=== PATIENT | male | born 1965 | race Asian ===

== ENCOUNTER 2016-12-12 13:37 | Emergency (ER) | payer MEDICAID, SELFPAY ==
[~2016-12-12] VITALS: Ht 165.1 cm; Wt 70.4 kg
[~2016-12-12 13:37] MED LIST: BUSP30TA2; IBUP-2070; NOCURR
[2016-12-12] MEDS ORDERED: IBUP200C5 PO (13:43)
[2016-12-12 14:49] VITALS: BP 114/71
[2016-12-12] MEDS ORDERED: IBUPROFEN 800 MG TABLET PO ONE (15:00)
== END 2016-12-12 18:01 | disposition home or self-care (01) ==
LOC: EMS 13:40
DX: M19.012 Primary osteoarthritis, left shoulder (principal); M75.32 Calcific tendinitis of left shoulder; S43.002A Unspecified subluxation of left shoulder joint, initial encounter; F17.210 Nicotine dependence, cigarettes, uncomplicated; X50.0XXA Overexertion from strenuous movement or load, initial encounter; Y93.89 Activity, other specified; Y92.89 Other specified places as the place of occurrence of the external cause; Y99.8 Other external cause status
CPT/HCPCS: 99284

== ENCOUNTER 2019-04-04 09:11 | Emergency (ER) | payer MEDICAID ==
[~2019-04-04] VITALS: Ht 170.2 cm; Wt 75.0 kg
[~2019-04-04 09:11] MED LIST changes: -BUSP30TA2; -IBUP-2070; +IBUP200C5 PO; -NOCURR
[2019-04-04] MEDS ORDERED: IBUP-2070 PO (09:32)
[2019-04-04 10:09] LABS: BASOPHILS % (AUTO) 0.5 % (0.0-2.0); EOSINOPHILS % (AUTO) 1.3 % (1.0-6.0); HEMATOCRIT 37.2 % (41-53); HEMOGLOBIN 12.6 g/dL (13.5-17.5); LYMPHOCYTES % (AUTO) 39.9 % (22.0-44.0); MEAN CORPUSCULAR HGB CONC 33.8 G/dL (31.0-37.0); MEAN CORPUSCULAR VOLUME 95 fL (80-100); MONOCYTES # (AUTO) 0.5 K/uL (0.1-1.0); MONOCYTES % (AUTO) 9.7 % (2.0-9.0); NEUTROPHILS # (AUTO) 2.4 K/uL (1.8-7.7); NEUTROPHILS % (AUTO) 48.6 % (40.0-70.0); PLATELET COUNT (AUTO) 253 K/uL (150-450); RED BLOOD CELL COUNT(AUTO) 3.93 MIL/uL (4.50-5.90); RED CELL DISTRIBUTION WIDTH 13.2 % (11.5-14.5)
[2019-04-04 10:18] LABS: ANION GAP 8 mmol/L (8-16); CALCIUM, TOTAL 8.3 mg/dL (8.8-10.5); CARBON DIOXIDE 27 mmol/L (22-29); CHLORIDE 102 mmol/L (98-107); CREATININE 0.98 mg/dL (0.60-1.30); GLOMERULAR FILTR. RATE CALC > 60 mL/min (>60); GLUCOSE,RANDOM 106 mg/dL (70-110); POTASSIUM 3.5 mmol/L (3.5-5.1); SODIUM SERUM 137 mmol/L (136-145); UREA NITROGEN, BLOOD 11 mg/dL (7-18)
[2019-04-04 10:26] LABS: ALANINE AMINOTRANSFERASE 26 U/L (12-78); ALBUMIN 3.1 g/dL (3.4-5.0); ALKALINE PHOSPHATASE 46 U/L (46-116); ASPARTATE AMINOTRANSFERASE 37 U/L (15-37); BILIRUBIN,TOTAL 0.3 mg/dL (0.1-1.0); TOTAL PROTEIN, SERUM 6.5 g/dL (6.4-8.2)
[2019-04-04 11:01] LABS: AMPHET/METH SCREEN,URINE POSITIVE (NEGATIVE); BARBITURATE SCREEN, URINE NEGATIVE (NEGATIVE); BENZODIAZEPINES SCREEN,URINE NEGATIVE (NEGATIVE); CANNABINOID SCREEN,URINE NEGATIVE (NEGATIVE); COCAINE SCREEN,URINE NEGATIVE (NEGATIVE); METHADONE SCREEN, URINE NEGATIVE (NEGATIVE); OPIATE SCREEN,URINE NEGATIVE (NEGATIVE); PHENCYCLIDINE SCREEN,URINE NEGATIVE (NEGATIVE)
[2019-04-04 11:40] VITALS: BP 120/91
== END 2019-04-04 11:56 | disposition home or self-care (01) ==
LOC: EMS 09:12
DX: F29 Unspecified psychosis not due to a substance or known physiological condition (principal); F15.10 Other stimulant abuse, uncomplicated; F17.210 Nicotine dependence, cigarettes, uncomplicated
CPT/HCPCS: 36415; 80053; 80307; 85025; 99283; 99406; G0480

== ENCOUNTER 2019-04-29 09:43 | Inpatient (IN) | payer MEDICAID ==
[~2019-04-29] VITALS: Ht 165.1 cm; Wt 73.5 kg
[~2019-04-29 09:43] MED LIST changes: +IBUP-2070 PO; -IBUP200C5 PO
[2019-04-29] MEDS ORDERED: OLANZapine 5 MG RAPDIS TABLET PO PRN (11:15)
[2019-04-29] MEDS ORDERED: MAGNESIUM HYDROXIDE SUSPENSION 30 ML UDCUP PO PRN (11:15)
[2019-04-29] MEDS ORDERED: ACETAMINOPHEN 325 MG TABLET PO PRN (11:15)
[2019-04-29] MEDS ORDERED: ZOLPIDEM TARTRATE 10 MG TABLET PO PRN (11:15)
[2019-04-29] MEDS ORDERED: LOPERAMIDE HCL 2 MG CAPSULE PO PRN (11:15)
[2019-04-29] MEDS ORDERED: GuaiFENesin/D-METHORPHAN [SUGAR-FREE] 200-20MG/10 ML SYRUP UDCUP PO PRN (11:15)
[2019-04-29] MEDS ORDERED: LORazepam 2 MG TABLET PO PRN (11:15)
[2019-04-29] MEDS ORDERED: HydrOXYzine PAMOATE 50 MG CAPSULE PO PRN (11:15)
[2019-04-29] MEDS ORDERED: TUBERCULIN, PURIFIED PROTEIN DERIVATIVE 5 TU/0.1 ML SYRINGE ID ONE (11:15)
[2019-04-29] MEDS ORDERED: PROMETHAZINE HCL 25 MG TABLET PO PRN (11:15)
[2019-04-29] MEDS ORDERED: MAG HYDROX/AL HYDROX/SIMETH ES 30 ML SUSPENSION UDCUP PO PRN (11:15)
[2019-04-29] MEDS ORDERED: IBUPROFEN 600 MG TABLET PO PRN (15:30)
[2019-04-29 15:31] VITALS: BP 132/91
[2019-04-29] MEDS: THIAMINE HCL 100 MG TABLET PO SCH (17:16)
[2019-04-29 19:50] VITALS: BP 114/64
[2019-04-29] MEDS ORDERED: OLANZapine 5 MG RAPDIS TABLET PO SCH (21:00)
[2019-04-30 05:33] VITALS: BP 108/67
[2019-04-30 08:49] VITALS: BP 130/83
[2019-04-30 09:07] LABS: CHOL/HDL RATIO 4.5 (4.2-7.3); FREE T4 (FREE THYROXINE) 0.21 ng/dL (0.76-1.46)
[2019-04-30 09:08] LABS: HEMOGLOBIN A1C 6.4 % (4.5-6.2)
[2019-04-30 09:28] LABS: THYROID STIMULATING HORMONE 126.67 uIU/mL (0.36-3.74)
[2019-04-30] MEDS: MULTIVITAMINS WITH MINERALS, THERAPEUTIC TABLET PO SCH (09:32)
[2019-04-30] MEDS: NALTREXONE HCL 50 MG TABLET PO SCH (09:32)
[2019-04-30] MEDS: FOLIC ACID 1 MG TABLET PO SCH (09:32)
[2019-04-30] MEDS: THIAMINE HCL 100 MG TABLET PO SCH ×2 (09:32→17:02)
[2019-04-30 16:22] VITALS: BP 104/65
[2019-04-30] MEDS: OLANZapine 10 MG RAPDIS TABLET PO SCH (21:03)
[2019-05-01 06:28] VITALS: BP 103/65
[2019-05-01 08:31] VITALS: BP 131/80
[2019-05-01] MEDS: NALTREXONE HCL 50 MG TABLET PO SCH (08:35)
[2019-05-01] MEDS: FOLIC ACID 1 MG TABLET PO SCH (08:35)
[2019-05-01] MEDS: MULTIVITAMINS WITH MINERALS, THERAPEUTIC TABLET PO SCH (08:35)
[2019-05-01] MEDS: THIAMINE HCL 100 MG TABLET PO SCH ×2 (08:35→17:15)
[2019-05-01] MEDS ORDERED: OLAN10TA22 PO (15:51)
[2019-05-01] MEDS ORDERED: NALT50TA PO (15:51)
[2019-05-01 16:25] VITALS: BP 113/70
[2019-05-01] MEDS: OLANZapine 10 MG RAPDIS TABLET PO SCH (20:19)
[2019-05-02 00:21] VITALS: BP 127/63
[2019-05-02] MEDS ORDERED: LEVOTHYROXINE SODIUM 50 MCG TABLET PO SCH (06:30)
[2019-05-02 07:40] LABS: BASOPHILS % (AUTO) 0.7 % (0.0-2.0); EOSINOPHILS % (AUTO) 1.8 % (1.0-6.0); HEMATOCRIT 37.6 % (41-53); HEMOGLOBIN 12.4 g/dL (13.5-17.5); LYMPHOCYTES # (AUTO) 2.4 K/uL (1.0-4.8); LYMPHOCYTES % (AUTO) 37.3 % (22.0-44.0); MEAN CORPUSCULAR HEMOGLOBIN 31.5 pg (26.0-34.0); MEAN CORPUSCULAR VOLUME 96 fL (80-100); MONOCYTES # (AUTO) 0.6 K/uL (0.1-1.0); MONOCYTES % (AUTO) 9.5 % (2.0-9.0); NEUTROPHILS # (AUTO) 3.3 K/uL (1.8-7.7); NEUTROPHILS % (AUTO) 50.7 % (40.0-70.0); PLATELET COUNT (AUTO) 300 K/uL (150-450); RED BLOOD CELL COUNT(AUTO) 3.94 MIL/uL (4.50-5.90)
[2019-05-02 07:59] LABS: ALANINE AMINOTRANSFERASE 28 U/L (12-78); ALBUMIN 3.2 g/dL (3.4-5.0); ALKALINE PHOSPHATASE 57 U/L (46-116); ANION GAP 6 mmol/L (8-16); ASPARTATE AMINOTRANSFERASE 18 U/L (15-37); BILIRUBIN,TOTAL 0.2 mg/dL (0.1-1.0); CALCIUM, TOTAL 8.7 mg/dL (8.8-10.5); CARBON DIOXIDE 28 mmol/L (22-29); CHLORIDE 104 mmol/L (98-107); GLOMERULAR FILTR. RATE CALC > 60 mL/min (>60); GLUCOSE,RANDOM 89 mg/dL (70-110); POTASSIUM 4.3 mmol/L (3.5-5.1); SODIUM SERUM 138 mmol/L (136-145); TOTAL PROTEIN, SERUM 6.3 g/dL (6.4-8.2); UREA NITROGEN, BLOOD 17 mg/dL (7-18)
[2019-05-02] MEDS: NALTREXONE HCL 50 MG TABLET PO SCH (08:15)
[2019-05-02] MEDS: MULTIVITAMINS WITH MINERALS, THERAPEUTIC TABLET PO SCH (08:15)
[2019-05-02] MEDS: THIAMINE HCL 100 MG TABLET PO SCH (08:15)
[2019-05-02] MEDS: FOLIC ACID 1 MG TABLET PO SCH (08:15)
[2019-05-02 08:20] VITALS: BP 105/66
[2019-05-02] MEDS ORDERED: LEVO50 PO (08:40)
== END 2019-05-02 13:00 | disposition home or self-care (01) | DRG 750 ==
LOC: EMS 09:45 → B3A 12:12 → B2S 16:27
PROVIDERS: ADMIT Psychiatry & Neurology Psychiatry; ATTEND Psychiatry & Neurology Psychiatry
DX: F20.9 Schizophrenia, unspecified (principal); R45.850 Homicidal ideations; F15.90 Other stimulant use, unspecified, uncomplicated; F17.210 Nicotine dependence, cigarettes, uncomplicated; G89.29 Other chronic pain; F41.9 Anxiety disorder, unspecified; G47.00 Insomnia, unspecified; K21.9 Gastro-esophageal reflux disease without esophagitis; K59.00 Constipation, unspecified; Z87.442 Personal history of urinary calculi
CPT/HCPCS: 83036; 84439; 84443; 86592; 87081

== ENCOUNTER 2021-02-08 09:55 | Emergency (ER) | payer MEDICAID ==
[~2021-02-08] VITALS: Ht 165.1 cm; Wt 76.4 kg
[~2021-02-08 09:55] MED LIST changes: -IBUP-2070 PO; +LEVO50 PO; +NALT50TA PO; +OLAN10TA22 PO
[2021-02-08] MEDS ORDERED: MAG HYDROX/AL HYDROX/SIMETH 30 ML SUSP UDCUP PO ONE (10:30)
[2021-02-08] MEDS ORDERED: MECLIZINE HCL 25 MG TABLET PO ONE (10:30)
[2021-02-08] MEDS ORDERED: FAMOTIDINE 10 MG/ML 2 ML VIAL IVP ONE (10:30)
[2021-02-08] MEDS ORDERED: SODIUM CHLORIDE 0.9% 1,000 ML IV ONE (10:30)
[2021-02-08] MEDS ORDERED: ONDANSETRON HCL 4 MG/2 ML VIAL IVP ONE (10:30)
[2021-02-08 10:51] LABS: EOSINOPHILS % (AUTO) 0.9 % (1.0-6.0); HEMATOCRIT 38.9 % (41-53); HEMOGLOBIN 12.7 g/dL (13.5-17.5); LYMPHOCYTES # (AUTO) 2.3 K/uL (1.0-4.8); LYMPHOCYTES % (AUTO) 31.4 % (22.0-44.0); MEAN CORPUSCULAR HEMOGLOBIN 31.1 pg (26.0-34.0); MEAN CORPUSCULAR HGB CONC 32.7 G/dL (31.0-37.0); MEAN CORPUSCULAR VOLUME 95 fL (80-100); MONOCYTES # (AUTO) 0.4 K/uL (0.1-1.0); MONOCYTES % (AUTO) 5.8 % (2.0-9.0); NEUTROPHILS # (AUTO) 4.5 K/uL (1.8-7.7); NEUTROPHILS % (AUTO) 60.9 % (40.0-70.0); PLATELET COUNT (AUTO) 253 K/uL (150-450); RED BLOOD CELL COUNT(AUTO) 4.09 MIL/uL (4.50-5.90); RED CELL DISTRIBUTION WIDTH 14.5 % (11.5-14.5)
[2021-02-08 11:01] LABS: ANION GAP 9 mmol/L (8-16); CALCIUM, TOTAL 9.3 mg/dL (8.8-10.5); CARBON DIOXIDE 29 mmol/L (22-29); CHLORIDE 102 mmol/L (98-107); CREATININE 1.38 mg/dL (0.60-1.30); GLOMERULAR FILTR. RATE CALC 53 mL/min (>60); GLUCOSE,RANDOM 106 mg/dL (70-110); POTASSIUM 4.2 mmol/L (3.5-5.1); SODIUM SERUM 140 mmol/L (136-145); UREA NITROGEN, BLOOD 16 mg/dL (7-18)
[2021-02-08 11:12] LABS: B-TYPE NATRIURETIC PEPTIDE 9 pg/mL (0-100)
[2021-02-08 11:25] LABS: ALANINE AMINOTRANSFERASE 25 U/L (12-78); ALBUMIN 4.2 g/dL (3.4-5.0); ALKALINE PHOSPHATASE 74 U/L (46-116); ASPARTATE AMINOTRANSFERASE 30 U/L (15-37); BILIRUBIN,TOTAL 0.4 mg/dL (0.1-1.0); CREATINE KINASE, TOTAL ONLY 496 U/L (39-308); TOTAL PROTEIN, SERUM 8.1 g/dL (6.4-8.2)
[2021-02-08 12:28] VITALS: BP 110/79
== END 2021-02-08 12:43 | disposition home or self-care (01) ==
LOC: EMS 10:02
DX: R42 Dizziness and giddiness (principal); F20.9 Schizophrenia, unspecified; F17.210 Nicotine dependence, cigarettes, uncomplicated
CPT/HCPCS: 36415; 71045; 80053; 82550; 83880; 84484; 85025; 93005; 96361; 96374; 96375; 99285; G0480; J2405; J3490; J7030

== ENCOUNTER 2022-02-25 03:44 | Emergency (ER) | payer MEDICAID ==
[~2022-02-25] VITALS: Ht 165.1 cm; Wt 77.0 kg
[2022-02-25 04:36] LABS: BASOPHILS % (AUTO) 0.8 % (0.0-2.0); EOSINOPHILS % (AUTO) 1.6 % (1.0-6.0); HEMATOCRIT 37.2 % (41-53); HEMOGLOBIN 12.3 g/dL (13.5-17.5); LYMPHOCYTES % (AUTO) 44.3 % (22.0-44.0); MEAN CORPUSCULAR HGB CONC 33.2 G/dL (31.0-37.0); MEAN CORPUSCULAR VOLUME 97 fL (80-100); MONOCYTES # (AUTO) 0.4 K/uL (0.1-1.0); MONOCYTES % (AUTO) 5.7 % (2.0-9.0); NEUTROPHILS # (AUTO) 3.2 K/uL (1.8-7.7); NEUTROPHILS % (AUTO) 47.6 % (40.0-70.0); PLATELET COUNT (AUTO) 227 K/uL (150-450); RED BLOOD CELL COUNT(AUTO) 3.86 MIL/uL (4.50-5.90); RED CELL DISTRIBUTION WIDTH 14.7 % (11.5-14.5)
[2022-02-25 04:43] LABS: ANION GAP 6 mmol/L (8-16); CALCIUM, TOTAL 9.4 mg/dL (8.8-10.5); CARBON DIOXIDE 28 mmol/L (22-29); CHLORIDE 99 mmol/L (98-107); CREATININE 1.52 mg/dL (0.60-1.30); GLUCOSE,RANDOM 100 mg/dL (70-110); POTASSIUM 4.2 mmol/L (3.5-5.1); SODIUM SERUM 133 mmol/L (136-145); UREA NITROGEN, BLOOD 17 mg/dL (7-18)
[2022-02-25 04:47] LABS: GLOMERULAR FILTR. RATE CALC 47 mL/min (>60)
[2022-02-25 04:52] LABS: ALANINE AMINOTRANSFERASE 31 U/L (12-78); ALBUMIN 4.5 g/dL (3.4-5.0); ALKALINE PHOSPHATASE 47 U/L (46-116); ASPARTATE AMINOTRANSFERASE 43 U/L (15-37); BILIRUBIN,TOTAL 0.5 mg/dL (0.1-1.0); TOTAL PROTEIN, SERUM 8.7 g/dL (6.4-8.2)
[2022-02-25 05:02] LABS: COVID AG,FIA SOURCE NASOPHARYNGEAL
[2022-02-25 05:10] LABS: AMPHET/METH SCREEN,URINE POSITIVE (NEGATIVE); BARBITURATE SCREEN, URINE NEGATIVE (NEGATIVE); BENZODIAZEPINES SCREEN,URINE NEGATIVE (NEGATIVE); CANNABINOID SCREEN,URINE NEGATIVE (NEGATIVE); COCAINE SCREEN,URINE NEGATIVE (NEGATIVE); METHADONE SCREEN, URINE NEGATIVE (NEGATIVE); OPIATE SCREEN,URINE NEGATIVE (NEGATIVE)
[2022-02-25 05:12] LABS: PHENCYCLIDINE SCREEN,URINE NEGATIVE (NEGATIVE)
[2022-02-25] MEDS ORDERED: HALOPERIDOL 5 MG TABLET PO ONE (05:15)
[2022-02-25 06:23] VITALS: BP 135/82
== END 2022-02-25 06:30 | disposition home or self-care (01) ==
LOC: EMS 03:45
DX: F20.9 Schizophrenia, unspecified (principal); G89.29 Other chronic pain; M54.9 Dorsalgia, unspecified; E03.9 Hypothyroidism, unspecified; F17.210 Nicotine dependence, cigarettes, uncomplicated; Z20.822 Contact with and (suspected) exposure to COVID-19
CPT/HCPCS: 99284; 87426; 80053; 85025; 36415; 80307; G0480

== ENCOUNTER 2022-03-05 20:04 | Emergency (ER) | payer MEDICAID ==
[~2022-03-05] VITALS: Ht 165.1 cm; Wt 90.9 kg
[~2022-03-05 20:04] MED LIST changes: +ATOR40TA28 PO; +NAPR-1025 PO; +OLAN10TA74 PO
[2022-03-05] MEDS ORDERED: ATOR10TA PO (20:11)
[2022-03-05 21:03] LABS: BASOPHILS % (AUTO) 1.2 % (0.0-2.0); EOSINOPHILS % (AUTO) 1.4 % (1.0-6.0); HEMATOCRIT 35.3 % (41-53); HEMOGLOBIN 11.8 g/dL (13.5-17.5); LYMPHOCYTES # (AUTO) 2.4 K/uL (1.0-4.8); LYMPHOCYTES % (AUTO) 39.9 % (22.0-44.0); MEAN CORPUSCULAR HEMOGLOBIN 32.7 pg (26.0-34.0); MEAN CORPUSCULAR HGB CONC 33.5 G/dL (31.0-37.0); MEAN CORPUSCULAR VOLUME 97 fL (80-100); MONOCYTES # (AUTO) 0.4 K/uL (0.1-1.0); MONOCYTES % (AUTO) 6.3 % (2.0-9.0); NEUTROPHILS # (AUTO) 3.1 K/uL (1.8-7.7); NEUTROPHILS % (AUTO) 51.2 % (40.0-70.0); PLATELET COUNT (AUTO) 220 K/uL (150-450); RED BLOOD CELL COUNT(AUTO) 3.63 MIL/uL (4.50-5.90); RED CELL DISTRIBUTION WIDTH 14.5 % (11.5-14.5)
[2022-03-05 21:11] LABS: COVID AG,FIA SOURCE NASOPHARYNGEAL
[2022-03-05 21:15] LABS: CALCIUM, TOTAL 9.9 mg/dL (8.8-10.5); POTASSIUM 4.6 mmol/L (3.5-5.1)
[2022-03-05 21:29] LABS: ALBUMIN 4.4 g/dL (3.4-5.0); BILIRUBIN,TOTAL 0.3 mg/dL (0.1-1.0); THYROID STIMULATING HORMONE 134.04 uIU/mL (0.36-3.74); TOTAL PROTEIN, SERUM 8.5 g/dL (6.4-8.2)
[2022-03-05] MEDS ORDERED: LEVOTHYROXINE SODIUM 100 MCG TABLET PO ONE (23:30)
[2022-03-05 23:54] VITALS: BP 126/80
[2022-03-05] MEDS ORDERED: LEVO50 PO (23:55)
== END 2022-03-06 00:26 | disposition home or self-care (01) ==
LOC: EMS 20:07
DX: E03.9 Hypothyroidism, unspecified (principal); F15.10 Other stimulant abuse, uncomplicated; F20.9 Schizophrenia, unspecified; Z91.14 Patient's other noncompliance with medication regimen; G89.29 Other chronic pain; M54.9 Dorsalgia, unspecified; F17.210 Nicotine dependence, cigarettes, uncomplicated; Z20.822 Contact with and (suspected) exposure to COVID-19
CPT/HCPCS: 99285; 87426; 80053; 84443; 85025; 36415; G0480

== ENCOUNTER 2022-12-03 06:15 | Inpatient (IN) | payer MEDICAID ==
[~2022-12-03] VITALS: Ht 165.1 cm; Wt 71.8 kg
[~2022-12-03 06:15] MED LIST changes: +ATOR10TA PO; -NALT50TA PO
[2022-12-03] MEDS ORDERED: KETOROLAC TROMETHAMINE 30 MG/ML VIAL IM ONE (06:30)
[2022-12-03 06:47] LABS: BASOPHILS % (AUTO) 0.5 % (0.0-2.0); EOSINOPHILS % (AUTO) 2.8 % (1.0-6.0); HEMATOCRIT 37.2 % (41-53); HEMOGLOBIN 12.1 g/dL (13.5-17.5); LYMPHOCYTES % (AUTO) 28.3 % (22.0-44.0); MEAN CORPUSCULAR HEMOGLOBIN 29.9 pg (26.0-34.0); MEAN CORPUSCULAR HGB CONC 32.4 G/dL (31.0-37.0); MEAN CORPUSCULAR VOLUME 92 fL (80-100); MONOCYTES # (AUTO) 0.6 K/uL (0.1-1.0); MONOCYTES % (AUTO) 8.9 % (2.0-9.0); NEUTROPHILS # (AUTO) 4.1 K/uL (1.8-7.7); NEUTROPHILS % (AUTO) 59.5 % (40.0-70.0); PLATELET COUNT (AUTO) 240 K/uL (150-450); RED BLOOD CELL COUNT(AUTO) 4.04 MIL/uL (4.50-5.90); RED CELL DISTRIBUTION WIDTH 13.7 % (11.5-14.5)
[2022-12-03 06:48] LABS: COVID AG,FIA SOURCE NASOPHARYNGEAL
[2022-12-03 06:53] LABS: ANION GAP 10 mmol/L (8-16); CALCIUM, TOTAL 8.9 mg/dL (8.8-10.5); CARBON DIOXIDE 24 mmol/L (22-29); CHLORIDE 102 mmol/L (98-107); CREATININE 0.88 mg/dL (0.60-1.30); GLOMERULAR FILTR. RATE CALC > 60 mL/min (>60); GLUCOSE,RANDOM 98 mg/dL (70-110); SODIUM SERUM 136 mmol/L (136-145); UREA NITROGEN, BLOOD 10 mg/dL (7-18)
[2022-12-03 07:05] LABS: ALCOHOL, BLOOD (SERUM) < 3 mg/dL (0-10)
[2022-12-03 07:07] LABS: ALANINE AMINOTRANSFERASE 21 U/L (12-78); ALBUMIN 3.6 g/dL (3.4-5.0); ALKALINE PHOSPHATASE 78 U/L (46-116); ASPARTATE AMINOTRANSFERASE 19 U/L (15-37); BILIRUBIN,TOTAL 0.5 mg/dL (0.1-1.0); THYROID STIMULATING HORMONE 13.26 uIU/mL (0.36-3.74); TOTAL PROTEIN, SERUM 7.2 g/dL (6.4-8.2)
[2022-12-03 07:21] LABS: SARS-COV2 (COVID) ANTIGEN,FIA Negative (Negative)
[2022-12-03 08:32] LABS: APPEARANCE,URINE CLEAR (CLEAR); BILIRUBIN,URINE NEGATIVE (NEGATIVE); COLOR,URINE LIGHT YELLOW (YELLOW); GLUCOSE, URINE (UA) NEGATIVE (NEGATIVE); KETONES,URINE NEGATIVE (NEGATIVE); LEUKOCYTE ESTERASE ,URINE TRACE (NEGATIVE); NITRATE,URINE NEGATIVE (NEGATIVE); OCCULT BLOOD,URINE NEGATIVE (NEGATIVE); PH,URINE 5.5 (5.0-8.0); PH,URINE DRUG SCREEN 5.5 (5.0-8.0); PROTEIN,URINE NEGATIVE (NEGATIVE); SPECIFIC GRAVITIY, URINE 1.016 (1.003-1.030); UROBILINOGEN,URINE <=1.0 mg/dL (<=1.0)
[2022-12-03 08:36] LABS: GLUCOMETER DEV NAME(LOC) ER.6; GLUCOSE,POINT OF CARE 92 MG/DL (70-110)
[2022-12-03 08:39] LABS: ALCOHOL, URINE DRUG SCREEN NEGATIVE (NEGATIVE); AMPHET/METH SCREEN,URINE NEGATIVE (NEGATIVE); BARBITURATE SCREEN, URINE NEGATIVE (NEGATIVE); BENZODIAZEPINES SCREEN,URINE NEGATIVE (NEGATIVE); CANNABINOID SCREEN,URINE NEGATIVE (NEGATIVE); COCAINE SCREEN,URINE NEGATIVE (NEGATIVE); METHADONE SCREEN, URINE NEGATIVE (NEGATIVE); OPIATE SCREEN,URINE NEGATIVE (NEGATIVE); PHENCYCLIDINE SCREEN,URINE NEGATIVE (NEGATIVE)
[2022-12-03] MEDS ORDERED: LEVOTHYROXINE SODIUM 125 MCG TABLET PO ONE (09:00)
[2022-12-03 09:09] LABS: BACTERIA,URINE None Seen /HPF (None Seen); RBC,URINE None Seen /HPF (0-2); WBC,URINE 0-2 /HPF (0-5)
[2022-12-03 09:10] LABS: SQUAMOUS EPITHELIAL CELL,UR Few /LPF (None Seen)
[2022-12-03] MEDS ORDERED: OLANZapine 5 MG RAPDIS TABLET PO PRN (09:30)
[2022-12-05] MEDS: LORazepam 2 MG TABLET PO PRN ×2 (09:56→21:17)
[2022-12-05 16:12] VITALS: BP 113/67; PULSE 94; RESP 18; TEMP 97.2
[2022-12-05] MEDS ORDERED: PROMETHAZINE HCL 25 MG TABLET PO PRN (20:15)
[2022-12-05] MEDS ORDERED: HydrOXYzine PAMOATE 50 MG CAPSULE PO PRN (20:15)
[2022-12-05] MEDS ORDERED: MAG HYDROX/AL HYDROX/SIMETH ES 30 ML SUSPENSION UDCUP PO PRN (20:15)
[2022-12-05] MEDS ORDERED: ACETAMINOPHEN 325 MG TABLET PO PRN (20:15)
[2022-12-05] MEDS ORDERED: LOPERAMIDE HCL 2 MG CAPSULE PO PRN (20:15)
[2022-12-05] MEDS ORDERED: TUBERCULIN, PURIFIED PROTEIN DERIVATIVE 5 TU/0.1 ML SYRINGE ID ONE (20:15)
[2022-12-05] MEDS ORDERED: GuaiFENesin/D-METHORPHAN [SUGAR-FREE] 200-20MG/10 ML SYRUP UDCUP PO PRN (20:15)
[2022-12-05] MEDS ORDERED: OLANZapine 5 MG RAPDIS TABLET PO ONE (20:15)
[2022-12-05] MEDS: ZOLPIDEM TARTRATE 10 MG TABLET PO PRN (21:16)
[2022-12-05] MEDS: MELATONIN 5 MG TABLET PO SCH (21:16)
[2022-12-05 22:11] VITALS: BP 110/67; PULSE 85; RESP 18; TEMP 97.2
[2022-12-06] MEDS: LEVOTHYROXINE SODIUM 50 MCG TABLET PO SCH (06:55)
[2022-12-06 07:07] LABS: HEMOGLOBIN A1C 5.8 % (3.8-5.6)
[2022-12-06 07:30] LABS: CHOL/HDL RATIO 3.9 (4.2-7.3); FREE T4 (FREE THYROXINE) 0.86 ng/dL (0.76-1.46); THYROID STIMULATING HORMONE 18.1 uIU/mL (0.36-3.74)
[2022-12-06] MEDS ORDERED: BuPROPion HCL XL 150 MG ER TABLET PO SCH (09:00)
[2022-12-06] MEDS: NALTREXONE HCL 50 MG TABLET PO SCH (09:39)
[2022-12-06] MEDS: MULTIVITAMINS WITH MINERALS, THERAPEUTIC TABLET PO SCH (09:39)
[2022-12-06] MEDS: FOLIC ACID 1 MG TABLET PO SCH (09:39)
[2022-12-06] MEDS: THIAMINE 100 MG TABLET PO SCH ×2 (09:39→17:25)
[2022-12-06] MEDS: OMEGA-3/DHA/EPA/FISH OIL 1,000 MG CAPSULE PO SCH (09:39)
[2022-12-06 10:19] VITALS: BP 111/71; PULSE 74; RESP 16; TEMP 97.2
[2022-12-06 20:00] VITALS: BP 116/67; PULSE 76; RESP 18; TEMP 97.8
[2022-12-06] MEDS ORDERED: OLANZapine 5 MG RAPDIS TABLET PO SCH (21:00)
[2022-12-06] MEDS: MELATONIN 5 MG TABLET PO SCH (21:04)
[2022-12-06] MEDS ORDERED: LURASIDONE HCL 40 MG TABLET PO PRN (21:30)
[2022-12-07] MEDS: LEVOTHYROXINE SODIUM 50 MCG TABLET PO SCH (06:47)
[2022-12-07] MEDS ORDERED: LURASIDONE HCL 40 MG TABLET PO SCH (07:30)
[2022-12-07] MEDS: FOLIC ACID 1 MG TABLET PO SCH (09:22)
[2022-12-07] MEDS: BuPROPion HCL XL 150 MG ER TABLET PO SCH (09:22)
[2022-12-07] MEDS: THIAMINE 100 MG TABLET PO SCH ×2 (09:22→17:27)
[2022-12-07] MEDS: MULTIVITAMINS WITH MINERALS, THERAPEUTIC TABLET PO SCH (09:22)
[2022-12-07] MEDS: NALTREXONE HCL 50 MG TABLET PO SCH (09:22)
[2022-12-07] MEDS: OMEGA-3/DHA/EPA/FISH OIL 1,000 MG CAPSULE PO SCH (09:22)
[2022-12-07 10:48] VITALS: BP 91/57; PULSE 74; RESP 18; TEMP 98
[2022-12-07 20:45] VITALS: BP 100/60; PULSE 68; RESP 18; TEMP 98
[2022-12-07] MEDS: MELATONIN 5 MG TABLET PO SCH (21:01)
[2022-12-08] MEDS: LEVOTHYROXINE SODIUM 50 MCG TABLET PO SCH (06:55)
[2022-12-08] MEDS ORDERED: LURASIDONE HCL 60 MG TABLET PO SCH (07:30)
[2022-12-08] MEDS: THIAMINE 100 MG TABLET PO SCH ×2 (08:26→16:05)
[2022-12-08] MEDS: NALTREXONE HCL 50 MG TABLET PO SCH (08:26)
[2022-12-08] MEDS: BuPROPion HCL XL 150 MG ER TABLET PO SCH (08:26)
[2022-12-08] MEDS: FOLIC ACID 1 MG TABLET PO SCH (08:26)
[2022-12-08] MEDS: MULTIVITAMINS WITH MINERALS, THERAPEUTIC TABLET PO SCH (08:27)
[2022-12-08] MEDS: OMEGA-3/DHA/EPA/FISH OIL 1,000 MG CAPSULE PO SCH (08:27)
[2022-12-08 12:13] VITALS: BP 101/19; PULSE 71; RESP 17; TEMP 97.3
[2022-12-08] MEDS: MELATONIN 5 MG TABLET PO SCH (20:20)
[2022-12-08 21:17] VITALS: BP 112/72; PULSE 70; RESP 18; TEMP 97.6
[2022-12-08] MEDS: ZOLPIDEM TARTRATE 10 MG TABLET PO PRN (22:02)
[2022-12-09] MEDS: LURASIDONE HCL 80 MG TABLET PO SCH (06:53)
[2022-12-09] MEDS: LEVOTHYROXINE SODIUM 50 MCG TABLET PO SCH (06:53)
[2022-12-09] MEDS: OMEGA-3/DHA/EPA/FISH OIL 1,000 MG CAPSULE PO SCH (08:32)
[2022-12-09] MEDS: NALTREXONE HCL 50 MG TABLET PO SCH (08:33)
[2022-12-09] MEDS: BuPROPion HCL XL 150 MG ER TABLET PO SCH (08:33)
[2022-12-09] MEDS: MULTIVITAMINS WITH MINERALS, THERAPEUTIC TABLET PO SCH (08:33)
[2022-12-09] MEDS: THIAMINE 100 MG TABLET PO SCH ×2 (08:33→16:18)
[2022-12-09] MEDS: FOLIC ACID 1 MG TABLET PO SCH (08:33)
[2022-12-09] MEDS: MAGNESIUM HYDROXIDE SUSPENSION 30 ML UDCUP PO PRN (08:34)
[2022-12-09 09:27] VITALS: BP 120/88; PULSE 81; RESP 16; TEMP 97.7
[2022-12-09] MEDS: LORazepam 2 MG TABLET PO PRN (10:16)
[2022-12-09] MEDS: MELATONIN 5 MG TABLET PO SCH (21:06)
[2022-12-09 22:00] VITALS: BP 114/88; PULSE 66; RESP 18; TEMP 97.4
[2022-12-10] MEDS: LEVOTHYROXINE SODIUM 50 MCG TABLET PO SCH (06:47)
[2022-12-10] MEDS: LURASIDONE HCL 80 MG TABLET PO SCH (06:47)
[2022-12-10] MEDS: FOLIC ACID 1 MG TABLET PO SCH (08:21)
[2022-12-10] MEDS: THIAMINE 100 MG TABLET PO SCH ×2 (08:21→15:53)
[2022-12-10] MEDS: OMEGA-3/DHA/EPA/FISH OIL 1,000 MG CAPSULE PO SCH (08:21)
[2022-12-10] MEDS: NALTREXONE HCL 50 MG TABLET PO SCH (08:22)
[2022-12-10] MEDS: MULTIVITAMINS WITH MINERALS, THERAPEUTIC TABLET PO SCH (08:22)
[2022-12-10] MEDS: BuPROPion HCL XL 150 MG ER TABLET PO SCH (08:22)
[2022-12-10 10:47] VITALS: BP 103/72; PULSE 74; RESP 18; TEMP 98.3
[2022-12-10] MEDS: LORazepam 2 MG TABLET PO PRN (15:56)
[2022-12-10] MEDS: MELATONIN 5 MG TABLET PO SCH (20:01)
[2022-12-10 21:12] VITALS: BP 104/69; PULSE 75; RESP 18; TEMP 97.8
[2022-12-10] MEDS: ZOLPIDEM TARTRATE 10 MG TABLET PO PRN (22:02)
[2022-12-11] MEDS: LEVOTHYROXINE SODIUM 50 MCG TABLET PO SCH (06:52)
[2022-12-11] MEDS: LURASIDONE HCL 80 MG TABLET PO SCH (06:52)
[2022-12-11] MEDS: OMEGA-3/DHA/EPA/FISH OIL 1,000 MG CAPSULE PO SCH (09:01)
[2022-12-11] MEDS: BuPROPion HCL XL 150 MG ER TABLET PO SCH (09:01)
[2022-12-11] MEDS: FOLIC ACID 1 MG TABLET PO SCH (09:01)
[2022-12-11] MEDS: THIAMINE 100 MG TABLET PO SCH ×2 (09:01→16:32)
[2022-12-11] MEDS: MULTIVITAMINS WITH MINERALS, THERAPEUTIC TABLET PO SCH (09:01)
[2022-12-11] MEDS: NALTREXONE HCL 50 MG TABLET PO SCH (09:01)
[2022-12-11 09:44] VITALS: BP 112/70; PULSE 79; RESP 18; TEMP 97.6
[2022-12-11] MEDS: MAGNESIUM HYDROXIDE SUSPENSION 30 ML UDCUP PO PRN (17:38)
[2022-12-11 20:39] VITALS: BP 136/78; PULSE 68; RESP 19; TEMP 98
[2022-12-11] MEDS: MELATONIN 5 MG TABLET PO SCH (21:41)
[2022-12-11] MEDS: LORazepam 2 MG TABLET PO PRN (21:41)
[2022-12-11] MEDS: ZOLPIDEM TARTRATE 10 MG TABLET PO PRN (21:42)
[2022-12-12] MEDS: LURASIDONE HCL 80 MG TABLET PO SCH (06:43)
[2022-12-12] MEDS: LEVOTHYROXINE SODIUM 50 MCG TABLET PO SCH (06:43)
[2022-12-12 08:00] VITALS: BP 117/79; PULSE 89; RESP 18; TEMP 98
[2022-12-12] MEDS: NALTREXONE HCL 50 MG TABLET PO SCH (09:49)
[2022-12-12] MEDS: MULTIVITAMINS WITH MINERALS, THERAPEUTIC TABLET PO SCH (09:49)
[2022-12-12] MEDS: THIAMINE 100 MG TABLET PO SCH ×2 (09:49→18:00)
[2022-12-12] MEDS: FOLIC ACID 1 MG TABLET PO SCH (09:49)
[2022-12-12] MEDS: OMEGA-3/DHA/EPA/FISH OIL 1,000 MG CAPSULE PO SCH (09:49)
[2022-12-12] MEDS: BuPROPion HCL XL 150 MG ER TABLET PO SCH (09:50)
[2022-12-12] MEDS: MELATONIN 5 MG TABLET PO SCH (21:08)
[2022-12-12] MEDS: LORazepam 2 MG TABLET PO PRN (21:39)
[2022-12-12] MEDS: ZOLPIDEM TARTRATE 10 MG TABLET PO PRN (21:39)
[2022-12-12 22:18] VITALS: BP 132/65; PULSE 68; RESP 18; TEMP 97.6
[2022-12-13] MEDS: LEVOTHYROXINE SODIUM 50 MCG TABLET PO SCH (06:51)
[2022-12-13] MEDS ORDERED: LURASIDONE HCL 40 MG TABLET PO SCH (07:30)
[2022-12-13 08:00] VITALS: BP 111/73; PULSE 76; RESP 18; TEMP 98.1
[2022-12-13] MEDS: OMEGA-3/DHA/EPA/FISH OIL 1,000 MG CAPSULE PO SCH (09:22)
[2022-12-13] MEDS: MULTIVITAMINS WITH MINERALS, THERAPEUTIC TABLET PO SCH (09:22)
[2022-12-13] MEDS: FOLIC ACID 1 MG TABLET PO SCH (09:23)
[2022-12-13] MEDS: NALTREXONE HCL 50 MG TABLET PO SCH (09:23)
[2022-12-13] MEDS: BuPROPion HCL XL 150 MG ER TABLET PO SCH (09:23)
[2022-12-13] MEDS: THIAMINE 100 MG TABLET PO SCH ×2 (09:23→16:32)
[2022-12-13 20:50] VITALS: BP 110/73; PULSE 96; RESP 18; TEMP 98.3
[2022-12-13] MEDS: ZOLPIDEM TARTRATE 10 MG TABLET PO PRN (21:10)
[2022-12-13] MEDS: LORazepam 2 MG TABLET PO PRN (21:10)
[2022-12-13] MEDS: MELATONIN 5 MG TABLET PO SCH (21:10)
[2022-12-14] MEDS: LURASIDONE HCL 80 MG TABLET PO SCH (07:01)
[2022-12-14] MEDS: LEVOTHYROXINE SODIUM 50 MCG TABLET PO SCH (07:01)
[2022-12-14] MEDS: NALTREXONE HCL 50 MG TABLET PO SCH (08:40)
[2022-12-14] MEDS: MULTIVITAMINS WITH MINERALS, THERAPEUTIC TABLET PO SCH (08:40)
[2022-12-14] MEDS: THIAMINE 100 MG TABLET PO SCH ×2 (08:40→16:38)
[2022-12-14] MEDS: BuPROPion HCL XL 150 MG ER TABLET PO SCH (08:40)
[2022-12-14] MEDS: OMEGA-3/DHA/EPA/FISH OIL 1,000 MG CAPSULE PO SCH (08:40)
[2022-12-14] MEDS: FOLIC ACID 1 MG TABLET PO SCH (08:40)
[2022-12-14] MEDS: MELATONIN 5 MG TABLET PO SCH (20:38)
[2022-12-14] MEDS: LORazepam 2 MG TABLET PO PRN (20:59)
[2022-12-14 22:43] VITALS: BP 129/74; PULSE 76; RESP 18; TEMP 98.1
[2022-12-14] MEDS: ZOLPIDEM TARTRATE 10 MG TABLET PO PRN (23:58)
[2022-12-15] MEDS: LURASIDONE HCL 80 MG TABLET PO SCH (06:53)
[2022-12-15] MEDS: LEVOTHYROXINE SODIUM 50 MCG TABLET PO SCH (06:53)
[2022-12-15 08:00] VITALS: BP 110/67; PULSE 70; RESP 18; TEMP 96
[2022-12-15] MEDS: OMEGA-3/DHA/EPA/FISH OIL 1,000 MG CAPSULE PO SCH (09:13)
[2022-12-15] MEDS: MULTIVITAMINS WITH MINERALS, THERAPEUTIC TABLET PO SCH (09:13)
[2022-12-15] MEDS: FOLIC ACID 1 MG TABLET PO SCH (09:14)
[2022-12-15] MEDS: BuPROPion HCL XL 150 MG ER TABLET PO SCH (09:14)
[2022-12-15] MEDS: THIAMINE 100 MG TABLET PO SCH ×2 (09:14→16:56)
[2022-12-15] MEDS: NALTREXONE HCL 50 MG TABLET PO SCH (09:17)
[2022-12-15] MEDS: MELATONIN 5 MG TABLET PO SCH (20:16)
[2022-12-15 20:26] VITALS: BP 119/82; PULSE 73; RESP 18; TEMP 98.4
[2022-12-15] MEDS ORDERED: QUEtiapine FUMARATE 100 MG TABLET PO PRN (20:45)
[2022-12-15] MEDS: ZOLPIDEM TARTRATE 10 MG TABLET PO PRN (20:45)
[2022-12-15] MEDS ORDERED: QUEtiapine FUMARATE 200 MG TABLET PO ONE (20:45)
[2022-12-15] MEDS ORDERED: QUEtiapine FUMARATE 200 MG TABLET PO SCH (21:00)
[2022-12-15] MEDS: LORazepam 2 MG TABLET PO PRN (21:11)
[2022-12-16] MEDS: LEVOTHYROXINE SODIUM 50 MCG TABLET PO SCH (06:46)
[2022-12-16] MEDS ORDERED: LURASIDONE HCL 60 MG TABLET PO SCH (07:30)
[2022-12-16 08:00] VITALS: BP 115/72; PULSE 72; RESP 18; TEMP 97.8
[2022-12-16] MEDS: QUEtiapine FUMARATE 25 MG TABLET PO SCH ×3 (09:21→17:26)
[2022-12-16] MEDS: OMEGA-3/DHA/EPA/FISH OIL 1,000 MG CAPSULE PO SCH (09:22)
[2022-12-16] MEDS: BuPROPion HCL XL 150 MG ER TABLET PO SCH (09:22)
[2022-12-16] MEDS: NALTREXONE HCL 50 MG TABLET PO SCH (09:23)
[2022-12-16] MEDS: MULTIVITAMINS WITH MINERALS, THERAPEUTIC TABLET PO SCH (09:23)
[2022-12-16] MEDS: MAGNESIUM HYDROXIDE SUSPENSION 30 ML UDCUP PO PRN (10:18)
[2022-12-16] MEDS: MELATONIN 5 MG TABLET PO SCH (20:32)
[2022-12-16] MEDS: QUEtiapine FUMARATE 200 MG TABLET PO SCH (21:00)
[2022-12-16] MEDS: ZOLPIDEM TARTRATE 10 MG TABLET PO PRN (21:54)
[2022-12-16 22:02] VITALS: BP 110/65; PULSE 68; RESP 18; TEMP 98
[2022-12-16] MEDS: LORazepam 2 MG TABLET PO PRN (22:45)
[2022-12-17] MEDS: LURASIDONE HCL 80 MG TABLET PO SCH (06:34)
[2022-12-17] MEDS: LEVOTHYROXINE SODIUM 50 MCG TABLET PO SCH (06:35)
[2022-12-17] MEDS: OMEGA-3/DHA/EPA/FISH OIL 1,000 MG CAPSULE PO SCH (09:30)
[2022-12-17] MEDS: NALTREXONE HCL 50 MG TABLET PO SCH (09:31)
[2022-12-17] MEDS: BuPROPion HCL XL 150 MG ER TABLET PO SCH (09:31)
[2022-12-17] MEDS: QUEtiapine FUMARATE 25 MG TABLET PO SCH ×3 (09:32→17:22)
[2022-12-17] MEDS: MULTIVITAMINS WITH MINERALS, THERAPEUTIC TABLET PO SCH (09:32)
[2022-12-17 09:36] VITALS: BP 105/65; PULSE 78; RESP 18; TEMP 97.6
[2022-12-17] MEDS: MAGNESIUM HYDROXIDE SUSPENSION 30 ML UDCUP PO PRN (11:49)
[2022-12-17] MEDS: QUEtiapine FUMARATE 200 MG TABLET PO SCH (20:32)
[2022-12-17] MEDS: MELATONIN 5 MG TABLET PO SCH (20:32)
[2022-12-17] MEDS: LORazepam 2 MG TABLET PO PRN (20:35)
[2022-12-17 23:00] VITALS: BP 116/94; PULSE 71; RESP 18; TEMP 97.4
[2022-12-18] MEDS: LEVOTHYROXINE SODIUM 50 MCG TABLET PO SCH (06:45)
[2022-12-18] MEDS: LURASIDONE HCL 80 MG TABLET PO SCH (06:45)
[2022-12-18] MEDS: OMEGA-3/DHA/EPA/FISH OIL 1,000 MG CAPSULE PO SCH (08:57)
[2022-12-18] MEDS: BuPROPion HCL XL 150 MG ER TABLET PO SCH (08:57)
[2022-12-18] MEDS: NALTREXONE HCL 50 MG TABLET PO SCH (08:57)
[2022-12-18] MEDS: QUEtiapine FUMARATE 25 MG TABLET PO SCH ×3 (08:58→17:06)
[2022-12-18] MEDS: MULTIVITAMINS WITH MINERALS, THERAPEUTIC TABLET PO SCH (08:58)
[2022-12-18] MEDS: MAGNESIUM HYDROXIDE SUSPENSION 30 ML UDCUP PO PRN (09:00)
[2022-12-18 10:14] VITALS: BP 117/71; PULSE 77; RESP 19; TEMP 97
[2022-12-18] MEDS: QUEtiapine FUMARATE 200 MG TABLET PO SCH (20:41)
[2022-12-18] MEDS: MELATONIN 5 MG TABLET PO SCH (20:41)
[2022-12-18 22:45] VITALS: BP 106/69; PULSE 85; RESP 20; TEMP 98
[2022-12-19] MEDS: LURASIDONE HCL 80 MG TABLET PO SCH (06:34)
[2022-12-19] MEDS: LEVOTHYROXINE SODIUM 50 MCG TABLET PO SCH (06:34)
[2022-12-19] MEDS: OMEGA-3/DHA/EPA/FISH OIL 1,000 MG CAPSULE PO SCH (10:25)
[2022-12-19] MEDS: BuPROPion HCL XL 150 MG ER TABLET PO SCH (10:26)
[2022-12-19] MEDS: NALTREXONE HCL 50 MG TABLET PO SCH (10:26)
[2022-12-19] MEDS: MULTIVITAMINS WITH MINERALS, THERAPEUTIC TABLET PO SCH (10:26)
[2022-12-19] MEDS: QUEtiapine FUMARATE 25 MG TABLET PO SCH ×3 (10:26→18:41)
[2022-12-19] MEDS: MAGNESIUM HYDROXIDE SUSPENSION 30 ML UDCUP PO PRN (11:10)
[2022-12-19 16:54] VITALS: BP 102/73; PULSE 84; RESP 18; TEMP 97.8
[2022-12-19] MEDS: LORazepam 2 MG TABLET PO PRN (19:54)
[2022-12-19 20:30] VITALS: BP 117/62; PULSE 85; RESP 18; TEMP 97.3
[2022-12-19] MEDS: MELATONIN 5 MG TABLET PO SCH (20:34)
[2022-12-19] MEDS: QUEtiapine FUMARATE 200 MG TABLET PO SCH (20:34)
[2022-12-20] MEDS: LEVOTHYROXINE SODIUM 50 MCG TABLET PO SCH (06:37)
[2022-12-20] MEDS ORDERED: LURASIDONE HCL 60 MG TABLET PO SCH (07:30)
[2022-12-20 08:00] VITALS: BP 102/57; PULSE 84; RESP 20; TEMP 97.9
[2022-12-20] MEDS: QUEtiapine FUMARATE 25 MG TABLET PO SCH ×3 (08:45→16:23)
[2022-12-20] MEDS: BuPROPion HCL XL 150 MG ER TABLET PO SCH (08:45)
[2022-12-20] MEDS: NALTREXONE HCL 50 MG TABLET PO SCH (08:45)
[2022-12-20] MEDS: OMEGA-3/DHA/EPA/FISH OIL 1,000 MG CAPSULE PO SCH (08:45)
[2022-12-20] MEDS: MULTIVITAMINS WITH MINERALS, THERAPEUTIC TABLET PO SCH (08:45)
[2022-12-20] MEDS: DOCUSATE SODIUM 250 MG CAPSULE PO SCH (09:19)
[2022-12-20] MEDS: LORazepam 2 MG TABLET PO PRN (20:45)
[2022-12-20] MEDS: QUEtiapine FUMARATE 300 MG TABLET PO SCH (20:45)
[2022-12-20] MEDS: MELATONIN 5 MG TABLET PO SCH (20:45)
[2022-12-20] MEDS ORDERED: QUEtiapine FUMARATE 200 MG TABLET PO SCH (21:00)
[2022-12-20 22:00] VITALS: BP 98/68; PULSE 82; RESP 18; TEMP 98.5
[2022-12-21] MEDS: LEVOTHYROXINE SODIUM 50 MCG TABLET PO SCH (06:58)
[2022-12-21] MEDS: LURASIDONE HCL 40 MG TABLET PO SCH (06:59)
[2022-12-21 08:00] VITALS: BP 98/71; PULSE 76; RESP 18; TEMP 97.9
[2022-12-21] MEDS: MULTIVITAMINS WITH MINERALS, THERAPEUTIC TABLET PO SCH (09:18)
[2022-12-21] MEDS: QUEtiapine FUMARATE 25 MG TABLET PO SCH ×3 (09:18→16:23)
[2022-12-21] MEDS: OMEGA-3/DHA/EPA/FISH OIL 1,000 MG CAPSULE PO SCH (09:18)
[2022-12-21] MEDS: BuPROPion HCL XL 150 MG ER TABLET PO SCH (09:18)
[2022-12-21] MEDS: NALTREXONE HCL 50 MG TABLET PO SCH (09:19)
[2022-12-21] MEDS: DOCUSATE SODIUM 250 MG CAPSULE PO SCH (09:19)
[2022-12-21] MEDS ORDERED: GABAPENTIN 300 MG CAPSULE PO PRN ×2 (12:15→16:15)
[2022-12-21] MEDS ORDERED: ESZOPICLONE 3 MG TABLET PO PRN (12:15)
[2022-12-21 21:37] VITALS: BP 108/73; PULSE 68; RESP 19; TEMP 97.8
[2022-12-21] MEDS: MELATONIN 5 MG TABLET PO SCH (21:47)
[2022-12-21] MEDS: QUEtiapine FUMARATE 300 MG TABLET PO SCH (21:47)
[2022-12-22] MEDS: LEVOTHYROXINE SODIUM 50 MCG TABLET PO SCH (06:17)
[2022-12-22] MEDS: LURASIDONE HCL 40 MG TABLET PO SCH (06:39)
[2022-12-22] MEDS: BuPROPion HCL XL 150 MG ER TABLET PO SCH (09:00)
[2022-12-22] MEDS: OMEGA-3/DHA/EPA/FISH OIL 1,000 MG CAPSULE PO SCH (09:01)
[2022-12-22] MEDS: NALTREXONE HCL 50 MG TABLET PO SCH (09:01)
[2022-12-22] MEDS: QUEtiapine FUMARATE 25 MG TABLET PO SCH ×3 (09:01→16:14)
[2022-12-22] MEDS: MULTIVITAMINS WITH MINERALS, THERAPEUTIC TABLET PO SCH (09:01)
[2022-12-22] MEDS: DOCUSATE SODIUM 250 MG CAPSULE PO SCH (09:01)
[2022-12-22 09:33] VITALS: BP 101/67; PULSE 74; RESP 18; TEMP 97.5
[2022-12-22] MEDS: QUEtiapine FUMARATE 300 MG TABLET PO SCH (21:34)
[2022-12-22] MEDS: MELATONIN 5 MG TABLET PO SCH (21:35)
[2022-12-23] MEDS: LEVOTHYROXINE SODIUM 50 MCG TABLET PO SCH (06:05)
[2022-12-23] MEDS: DOCUSATE SODIUM 250 MG CAPSULE PO SCH (08:43)
[2022-12-23] MEDS: BuPROPion HCL XL 150 MG ER TABLET PO SCH (08:43)
[2022-12-23] MEDS: MULTIVITAMINS WITH MINERALS, THERAPEUTIC TABLET PO SCH (08:43)
[2022-12-23] MEDS: OMEGA-3/DHA/EPA/FISH OIL 1,000 MG CAPSULE PO SCH (08:43)
[2022-12-23] MEDS: NALTREXONE HCL 50 MG TABLET PO SCH (08:44)
[2022-12-23] MEDS: QUEtiapine FUMARATE 25 MG TABLET PO SCH ×3 (08:44→16:18)
[2022-12-23 09:13] VITALS: BP 124/75; PULSE 87; RESP 18; TEMP 97.2
[2022-12-23 20:59] VITALS: BP 116/82; PULSE 89; RESP 18; TEMP 97.7
[2022-12-23] MEDS: QUEtiapine FUMARATE 200 MG TABLET PO SCH (21:20)
[2022-12-23] MEDS: MELATONIN 5 MG TABLET PO SCH (21:21)
[2022-12-24] MEDS: LEVOTHYROXINE SODIUM 50 MCG TABLET PO SCH (06:55)
[2022-12-24] MEDS: BuPROPion HCL XL 150 MG ER TABLET PO SCH (08:40)
[2022-12-24] MEDS: DOCUSATE SODIUM 250 MG CAPSULE PO SCH (08:40)
[2022-12-24] MEDS: MULTIVITAMINS WITH MINERALS, THERAPEUTIC TABLET PO SCH (08:40)
[2022-12-24] MEDS: OMEGA-3/DHA/EPA/FISH OIL 1,000 MG CAPSULE PO SCH (08:40)
[2022-12-24] MEDS: QUEtiapine FUMARATE 25 MG TABLET PO SCH ×3 (08:41→16:33)
[2022-12-24] MEDS: NALTREXONE HCL 50 MG TABLET PO SCH (08:41)
[2022-12-24 09:00] VITALS: BP 102/75; PULSE 102; RESP 18; TEMP 98
[2022-12-24 21:16] VITALS: BP 136/77; PULSE 68; RESP 18; TEMP 98.1
[2022-12-24] MEDS: MELATONIN 5 MG TABLET PO SCH (21:17)
[2022-12-24] MEDS: QUEtiapine FUMARATE 200 MG TABLET PO SCH (21:18)
[2022-12-25] MEDS: LEVOTHYROXINE SODIUM 50 MCG TABLET PO SCH (06:40)
[2022-12-25 08:48] VITALS: BP 91/60; PULSE 84; RESP 16; TEMP 97.2
[2022-12-25] MEDS: MULTIVITAMINS WITH MINERALS, THERAPEUTIC TABLET PO SCH (09:26)
[2022-12-25] MEDS: OMEGA-3/DHA/EPA/FISH OIL 1,000 MG CAPSULE PO SCH (09:26)
[2022-12-25] MEDS: NALTREXONE HCL 50 MG TABLET PO SCH (09:26)
[2022-12-25] MEDS: QUEtiapine FUMARATE 25 MG TABLET PO SCH ×3 (09:26→16:03)
[2022-12-25] MEDS: DOCUSATE SODIUM 250 MG CAPSULE PO SCH (09:27)
[2022-12-25] MEDS: BuPROPion HCL XL 150 MG ER TABLET PO SCH (09:27)
[2022-12-25 20:35] VITALS: BP 105/78; PULSE 79; RESP 18; TEMP 97.8
[2022-12-25] MEDS: MELATONIN 5 MG TABLET PO SCH (20:49)
[2022-12-25] MEDS: QUEtiapine FUMARATE 200 MG TABLET PO SCH (20:50)
[2022-12-26] MEDS: LEVOTHYROXINE SODIUM 50 MCG TABLET PO SCH (06:36)
[2022-12-26] MEDS: NALTREXONE HCL 50 MG TABLET PO SCH (09:34)
[2022-12-26] MEDS: QUEtiapine FUMARATE 25 MG TABLET PO SCH ×2 (09:34→12:54)
[2022-12-26] MEDS: BuPROPion HCL XL 150 MG ER TABLET PO SCH (09:34)
[2022-12-26] MEDS: MULTIVITAMINS WITH MINERALS, THERAPEUTIC TABLET PO SCH (09:34)
[2022-12-26] MEDS: OMEGA-3/DHA/EPA/FISH OIL 1,000 MG CAPSULE PO SCH (09:34)
[2022-12-26] MEDS: DOCUSATE SODIUM 250 MG CAPSULE PO SCH (09:34)
[2022-12-26 10:43] VITALS: BP 115/63; PULSE 74; RESP 18; TEMP 97.8
[2022-12-26] MEDS ORDERED: QUET200T30 PO ×2 (11:51→14:09)
[2022-12-26] MEDS ORDERED: MELA5TAB40 PO ×2 (11:51→14:09)
[2022-12-26] MEDS ORDERED: QUET25TA36 PO ×2 (11:51→14:09)
[2022-12-26] MEDS ORDERED: NALT50TA PO ×2 (11:51→14:09)
[2022-12-26] MEDS ORDERED: BUPR-49 PO ×2 (11:51→14:09)
[2022-12-26] MEDS ORDERED: OMEG-135 PO ×2 (11:51→14:09)
[2022-12-26] MEDS ORDERED: MULT-1239 PO (13:09)
[2022-12-26] MEDS ORDERED: DOCU-412 PO (13:09)
== END 2022-12-26 14:45 | disposition home or self-care (01) | DRG 750 ==
LOC: EMS 06:18 → 3EI 12-05 06:35
PROVIDERS: ADMIT Psychiatry & Neurology Psychiatry; ATTEND Psychiatry & Neurology Psychiatry
DX: F25.1 Schizoaffective disorder, depressive type (principal); E11.9 Type 2 diabetes mellitus without complications; R45.851 Suicidal ideations; E03.9 Hypothyroidism, unspecified; F15.20 Other stimulant dependence, uncomplicated; J44.9 Chronic obstructive pulmonary disease, unspecified; G89.29 Other chronic pain; K21.9 Gastro-esophageal reflux disease without esophagitis; F17.210 Nicotine dependence, cigarettes, uncomplicated; Z20.822 Contact with and (suspected) exposure to COVID-19; Z59.00 Homelessness unspecified; Z55.9 Problems related to education and literacy, unspecified; Z79.899 Other long term (current) drug therapy; Z65.3 Problems related to other legal circumstances; Z63.9 Problem related to primary support group, unspecified
CPT/HCPCS: 80053; 80061; 80307; 81001; 82962; 83036; 84439; 84443; 85025; 86592; 99285; G0480; J1885; Q9967

== ENCOUNTER 2022-12-30 17:35 | Emergency (ER) | payer MEDICAID ==
[~2022-12-30] VITALS: Ht 165.1 cm; Wt 75.0 kg
[~2022-12-30 17:35] MED LIST changes: -ATOR10TA PO; -ATOR40TA28 PO; +BUPR-49 PO; -LEVO50 PO; +MELA5TAB40 PO; +NALT50TA PO; -NAPR-1025 PO; -OLAN10TA22 PO; -OLAN10TA74 PO; +OMEG-135 PO; +QUET200T30 PO; +QUET25TA36 PO
[2022-12-30 17:38] VITALS: TEMP 98.6
[2022-12-30 18:01] VITALS: BP 98/58; PULSE 84; RESP 18
[2022-12-30 18:18] LABS: BASOPHILS % (AUTO) 0.7 % (0.0-2.0); EOSINOPHILS % (AUTO) 1.5 % (1.0-6.0); HEMATOCRIT 37.4 % (41-53); HEMOGLOBIN 12.2 g/dL (13.5-17.5); LYMPHOCYTES % (AUTO) 39.3 % (22.0-44.0); MEAN CORPUSCULAR HEMOGLOBIN 29.9 pg (26.0-34.0); MEAN CORPUSCULAR HGB CONC 32.6 G/dL (31.0-37.0); MEAN CORPUSCULAR VOLUME 92 fL (80-100); MONOCYTES # (AUTO) 0.6 K/uL (0.1-1.0); MONOCYTES % (AUTO) 7.3 % (2.0-9.0); NEUTROPHILS # (AUTO) 3.9 K/uL (1.8-7.7); NEUTROPHILS % (AUTO) 51.2 % (40.0-70.0); PLATELET COUNT (AUTO) 263 K/uL (150-450); RED BLOOD CELL COUNT(AUTO) 4.09 MIL/uL (4.50-5.90); WHITE BLOOD COUNT (AUTO) 7.6 K/uL (4.5-11.0)
[2022-12-30 18:29] LABS: ANION GAP 9 mmol/L (8-16); CALCIUM, TOTAL 8.6 mg/dL (8.8-10.5); CARBON DIOXIDE 28 mmol/L (22-29); CHLORIDE 101 mmol/L (98-107); CREATININE 1.37 mg/dL (0.60-1.30); GLOMERULAR FILTR. RATE CALC 53 mL/min (>60); GLUCOSE,RANDOM 93 mg/dL (70-110); POTASSIUM 4.2 mmol/L (3.5-5.1); SODIUM SERUM 138 mmol/L (136-145); UREA NITROGEN, BLOOD 30 mg/dL (7-18)
[2022-12-30] MEDS ORDERED: HALOPERIDOL 5 MG TABLET PO ONE (18:30)
[2022-12-30 18:35] LABS: ALANINE AMINOTRANSFERASE 32 U/L (12-78); ALBUMIN 3.5 g/dL (3.4-5.0); ALKALINE PHOSPHATASE 72 U/L (46-116); ASPARTATE AMINOTRANSFERASE 16 U/L (15-37); BILIRUBIN,TOTAL 0.1 mg/dL (0.1-1.0)
[2022-12-30 18:36] LABS: ALCOHOL, BLOOD (SERUM) < 3 mg/dL (0-10)
[2022-12-30 18:36] LABS: COVID AG,FIA SOURCE NASAL SWAB
[2022-12-30 18:55] LABS: SARS-COV2 (COVID) ANTIGEN,FIA Negative (Negative)
== END 2022-12-30 20:09 | disposition home or self-care (01) ==
LOC: EMS 17:38
DX: F20.9 Schizophrenia, unspecified (principal); E03.9 Hypothyroidism, unspecified; G89.29 Other chronic pain; M54.9 Dorsalgia, unspecified; F17.210 Nicotine dependence, cigarettes, uncomplicated; Z98.890 Other specified postprocedural states; Z20.822 Contact with and (suspected) exposure to COVID-19
CPT/HCPCS: 99284; 87426; 80053; 85025; 36415; G0480

== ENCOUNTER 2023-10-24 11:43 | Emergency (ER) | payer MEDICAID, OTHER ==
[~2023-10-24] VITALS: Ht 165.1 cm; Wt 72.7 kg
[~2023-10-24 11:43] MED LIST changes: -NALT50TA PO; +NALT50TA6 PO
[2023-10-24 12:03] VITALS: TEMP 98.4
[2023-10-24] MEDS: ACETAMINOPHEN 500 MG TABLET PO ONE (12:47)
[2023-10-24 13:17] LABS: BASOPHILS % (AUTO) 0.8 % (0.0-2.0); EOSINOPHILS % (AUTO) 1.8 % (1.0-6.0); HEMATOCRIT 36.3 % (41-53); HEMOGLOBIN 12.2 g/dL (13.5-17.5); LYMPHOCYTES % (AUTO) 39.4 % (22.0-44.0); MEAN CORPUSCULAR HEMOGLOBIN 32.4 pg (26.0-34.0); MEAN CORPUSCULAR HGB CONC 33.5 G/dL (31.0-37.0); MEAN CORPUSCULAR VOLUME 97 fL (80-100); MONOCYTES # (AUTO) 0.3 K/uL (0.1-1.0); MONOCYTES % (AUTO) 5.9 % (2.0-9.0); NEUTROPHILS # (AUTO) 2.6 K/uL (1.8-7.7); NEUTROPHILS % (AUTO) 52.1 % (40.0-70.0); PLATELET COUNT (AUTO) 202 K/uL (150-450); RED BLOOD CELL COUNT(AUTO) 3.75 MIL/uL (4.50-5.90); RED CELL DISTRIBUTION WIDTH 14.4 % (11.5-14.5)
[2023-10-24 13:25] LABS: ANION GAP 6 mmol/L (8-16); CALCIUM, TOTAL 9.1 mg/dL (8.8-10.5); CARBON DIOXIDE 30 mmol/L (22-29); CHLORIDE 103 mmol/L (98-107); CREATININE 1.58 mg/dL (0.60-1.30); GLOMERULAR FILTR. RATE CALC 45 mL/min (>60); GLUCOSE,RANDOM 101 mg/dL (70-110); POTASSIUM 4.3 mmol/L (3.5-5.1); SODIUM SERUM 139 mmol/L (136-145); UREA NITROGEN, BLOOD 18 mg/dL (7-18)
[2023-10-24 13:27] LABS: B-TYPE NATRIURETIC PEPTIDE < 5 pg/mL (0-100)
[2023-10-24 13:30] LABS: COVID AG,FIA SOURCE NASAL SWAB
[2023-10-24 13:33] LABS: TROPONIN I-HIGH SENSITIVITY 4 ng/L (<76)
[2023-10-24 13:49] LABS: ALANINE AMINOTRANSFERASE 69 U/L (12-78); ALBUMIN 3.9 g/dL (3.4-5.0); ALKALINE PHOSPHATASE 57 U/L (46-116); ASPARTATE AMINOTRANSFERASE 40 U/L (15-37); BILIRUBIN,TOTAL 0.4 mg/dL (0.1-1.0); CREATINE KINASE, TOTAL ONLY 240 U/L (39-308); PHOSPHORUS 3.2 mg/dL (2.5-4.9)
[2023-10-24 13:53] LABS: SARS-COV2 (COVID) ANTIGEN,FIA Negative (Negative)
[2023-10-24 15:15] VITALS: BP 110/82; PULSE 67; RESP 18
[2023-10-24] MEDS ORDERED: ACET-3385 PO (15:23)
[2023-10-24] MEDS: PENICILLIN G BENZATHINE LA 1,200,000 UNITS/2 ML SYRINGE IM ONE (15:27)
== END 2023-10-24 15:36 | disposition home or self-care (01) ==
LOC: EMS 11:43
DX: J02.0 Streptococcal pharyngitis (principal); R00.2 Palpitations; E03.9 Hypothyroidism, unspecified; F20.9 Schizophrenia, unspecified; F17.210 Nicotine dependence, cigarettes, uncomplicated; Z98.890 Other specified postprocedural states; Z20.822 Contact with and (suspected) exposure to COVID-19
CPT/HCPCS: 99285; 71045; 87426; 80053; 82550; 83735; 83880; 84100; 84484; 85025; 87430; 36415; 93005; 96372; J0561